=== PATIENT | male | born 1965 | race Caucasian/White ===

== ENCOUNTER 2017-04-23 05:44 | Emergency (ER) | payer MEDICAID ==
[~2017-04-23] VITALS: Ht 182.9 cm; Wt 102.0 kg
[2017-04-23 05:54] VITALS: BP 130/109
== END 2017-04-23 06:28 | disposition home or self-care (01) ==
LOC: ED 05:44
DX: J02.9 Acute pharyngitis, unspecified (principal); H57.10 Ocular pain, unspecified eye; Z90.89 Acquired absence of other organs